=== PATIENT | female | born 1985 | race Caucasian/White ===

== ENCOUNTER 2016-12-15 20:14 | Emergency (ER) | payer BC ==
[2016-12-15 20:40] VITALS: BP 114/75
--- NOTE | 2016-12-15 21:23 | UC ---
Shoulder Pain HPI - HPI Summary HPI Summary: The patient comes in today for: 1. Bilateral shoulder pain: Onset: "a few weeks ago." Palliative/provocative: Movement makes it worse. Quality: Stabbing. Region: Bilateral shoulders Severity: 02/24 Time: Constant. Associated symptoms: Injury/event: None known. She has no idea. Previous treatment: She has been taking Nida "Pain relief." She does not know what the pain medication is nor the dosing instructions. PCP: Dr. Us, but she has not seen her for this. X-rays" None. She complains of right shoulder muscle spasms. - History of Current Complaint Chief Complaint: UCUpperExtremity Stated Complaint: SHOULDER PAIN Time Seen by Provider: 12/15/16 21:17 Hx Obtained From: Patient Hx Last Menstrual Period: 11/25/16 - Allergies/Home Medications Allergies/Adverse Reactions: Allergies Allergy/AdvReac Type Severity Reaction Status Date / Time No Known Allergies Allergy Verified 10/08/14 05:50 Home Medications: Home Medications Naltrexone HCl-Bupropion HCl [Contrave 8-90 mg] 1 tab PO 12/15/16 [History] Topiramate [Topamax 100 mg tab] 12/15/16 [History] PMH/Surg Hx/FS Hx/Imm Hx Previously Healthy: No - Hx substance abuse, ADHD Endocrine History Of: Denies: Diabetes, Thyroid Disease, Hyperthyroidism, Hypothyroidism, Dyslipidemia Cardiovascular History Of: Denies: Cardiac Disorders, Hypertension, Pacemaker/ICD, Myocardial Infarction , Congestive Heart Failure, Atrial Fibrillation, Deep Vein Thrombosis, Bleeding Disorders Respiratory History Of: Reports: Asthma - Albuterol inhaler once week Denies: COPD GI/ History Of: Reports: Gastroesophageal Reflux Denies: Ulcer, Gastrointestinal Bleed, Gall Bladder Disease, Kidney Stones, Diverticulitis, Renal Disease, Urosepsis Neurological History Of: Denies: TIA, CVA, Dementia, Seizures, Migraine Psychological History Of: Reports: Anxiety, Depression Denies: Bipolar Disorder, Schizophrenia, Post Traumatic Stress Disorder Cancer History Of: Denies: Lung Cancer, Colorectal Cancer, Breast Cancer, Prostate Cancer, Cervical Cancer Other History Of: Negative For: HIV, Hepatitis B, Hepatitis C, Anticoagulant Therapy - Surgical History Surgical History: Yes Surgery Procedure, Year, and Place: knee sugery in the past - Family History Known Family History: Positive: Cardiac Disease Negative: Hypertension - Social History Occupation: Unemployed Alcohol Use: None Substance Use Type: None Smoking Status (MU): Never Smoked Tobacco - Immunization History Most Recent Influenza Vaccination: never Most Recent Tetanus Shot: unknown Most Recent Pneumonia Vaccination: never Review of Systems Constitutional: Negative Skin: Negative Eyes: Negative ENT: Negative Respiratory: Negative Cardiovascular: Negative Gastrointestinal: Negative Genitourinary: Negative Musculoskeletal: Arthralgia All Other Systems Reviewed And Are Negative: Yes Physical Exam Triage Information Reviewed: Yes Appearance: Well-Appearing, No Pain Distress - When taking a history, she moves her arms all about to express herself. She does not life them about her had, but will abduct them away from her body to about 45 degrees. Vital Signs: Initial Vital Signs Temp 98.6 F 12/15/16 20:36 Pulse 85 12/15/16 20:36 Resp 20 12/15/16 20:36 BP 114/75 12/15/16 20:36 Pulse Ox 99 12/15/16 20:36 Eyes: Positive: Conjunctiva Clear ENT: Positive: Hearing grossly normal. Negative: Pharyngeal erythema, Nasal congestion, Nasal drainage, TM bulging, TM dull, TM red, Tonsillar swelling, Tonsillar exudate Dental: Negative: Gross Decay/Caries @, Dental Fracture @ Neck: Positive: Supple, Nontender, No Lymphadenopathy. Negative: Nuchal Rigidity Respiratory: Positive: Chest non-tender, Lungs clear, No respiratory distress, No accessory muscle use. Negative: Crackles, Wheezing Cardiovascular: Positive: RRR, No Murmur Abdomen Description: Positive: Nontender, No Organomegaly, Soft. Negative: Distended, Guarding Musculoskeletal: Positive: Strength Intact, ROM Limited @ - She is able to anteriorly abduct her arms to a few degrees above horizontal. Lateral abdution is to about horizontal. There is no tenderness to palpation of the coracoid process, AC joint, deltoid bursa or the biceps tendon. She has good strengh to resisting internal and external rotation. Neurological: Positive: Alert, Muscle Tone Normal Psychological: Positive: Age Appropriate Behavior, Consolable Skin: Negative: rashes, breakdown Shoulder Course/Dx - Differential Dx/Diagnosis Differential Diagnosis/HQI/PQRI: Bursitis, Sprain Provider Diagnoses: shoulder tendonitis, bilateral. Discharge - Discharge Plan Condition: Stable Disposition: HOME Patient Education Materials: Shoulder Sprain (ED), Tendinitis (ED) Referrals: Landy Golden MD [Primary Care Provider] - 1 Week (Please see your primary care provider in a week to see how well you are doing. If you get worse, please be seen sooner in the ER or through us.)
[2016-12-15] MEDS ORDERED: Naproxen TAB* 250 MG PO ONE (21:39)
== END 2016-12-15 21:58 | disposition home or self-care (01) ==
LOC: UCEAST 20:14
DX: M75.92 Shoulder lesion, unspecified, left shoulder (principal); M75.91 Shoulder lesion, unspecified, right shoulder; F90.9 Attention-deficit hyperactivity disorder, unspecified type; J45.909 Unspecified asthma, uncomplicated; K21.9 Gastro-esophageal reflux disease without esophagitis; F41.8 Other specified anxiety disorders
CPT/HCPCS: 99212; A9270-GY; G0463

== ENCOUNTER 2017-07-28 14:12 | Emergency (ER) | payer BC, OTHER ==
[2017-07-28 16:11] VITALS: BP 111/69
[2017-07-28] MEDS ORDERED: Acetaminophen TAB* 325 MG PO ONE (16:15)
--- NOTE | 2017-07-28 16:17 | UC ---
Nagi Rey Gabriel, scribed for Balta Grant MD on 07/28/17 at 1521 . FLU HPI - HPI Summary HPI Summary: This patient is a 32 year old F presenting to [facility] with a chief complaint of joint and bone pain since last night. The patient rates the pain 8/10 in severity. Patient reports chills, sinus pain, sore throat, coughing, muscle aches, rhinorrhea, diarrhea, and nausea. She states she has felt like she has had a cold for about 2 weeks. 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 - History of Current Complaint Chief Complaint: UCGeneralIllness Stated Complaint: BODYACHES Time Seen by Provider: 07/28/17 15:11 Hx Obtained From: Patient Hx Last Menstrual Period: 07/27/17 Onset/Duration: Lasting Weeks - 2, worse since last night, Still Present Severity Currently: Mild Severity Initially: Moderate Pain Intensity: 8 Associated Signs & Symptoms: Positive: Myalgia, Cough, Sore Throat, Nasal Congestion, Diarrhea. Negative: Headache, Vomiting Related Hx: Possible Flu/Infectious Exposure - children - Allergy/Home Medications Allergies/Adverse Reactions: Allergies Allergy/AdvReac Type Severity Reaction Status Date / Time No Known Allergies Allergy Verified 10/08/14 05:50 Home Medications: Home Medications Cetirizine* [ZyrTEC 10 MG TAB*] 10 mg PO DAILY 07/28/17 [History Confirmed 07/28] Venlafaxine HCl [Effexor XR-] 37.5 mg PO DAILY 07/28/17 [History Confirmed 07/28] PMH/Surg Hx/FS Hx/Imm Hx Previously Healthy: Yes Other History Of: Negative For: HIV, Hepatitis B, Hepatitis C, Anticoagulant Therapy - Surgical History Surgical History: Yes Surgery Procedure, Year, and Place: knee sugery in the past - Family History Known Family History: Positive: Cardiac Disease Negative: Hypertension - Social History Occupation: Employed Full-time Alcohol Use: None Substance Use Type: None Smoking Status (MU): Never Smoked Tobacco Type: eCigarettes - Immunization History Most Recent Influenza Vaccination: never Most Recent Tetanus Shot: unknown Most Recent Pneumonia Vaccination: never Review of Systems Constitutional: Chills ENT: Sore Throat, Nasal Discharge, Sinus Pain/Tenderness Respiratory: Cough Gastrointestinal: Diarrhea, Nausea Musculoskeletal: Myalgia, Other: - joint and bone pain All Other Systems Reviewed And Are Negative: Yes Physical Exam Triage Information Reviewed: Yes Appearance: Well-Appearing, No Pain Distress, Other: - the patient is figits a lot and is anxious while talking. She does settle down when gets used to talking with me. Vital Signs: Initial Vital Signs Temp 98.0 F 07/28/17 14:40 Pulse 119 07/28/17 14:40 Resp 18 07/28/17 14:40 BP 104/63 07/28/17 14:40 Pulse Ox 100 07/28/17 14:40 Vital Signs Reviewed: Yes Eyes: Positive: Conjunctiva Clear ENT: Positive: Normal ENT inspection, Pharynx normal, Nasal congestion, TMs normal Neck: Positive: Supple, Nontender Respiratory: Positive: Chest non-tender, Lungs clear Cardiovascular: Positive: RRR, No Murmur Abdomen Description: Positive: Nontender Musculoskeletal: Positive: ROM Intact, No Edema, Other: - no swelling joints Neurological: Positive: Alert, Muscle Tone Normal Psychological Exam: Normal Skin Exam: Normal Flu Course/Dx - Course Course Of Treatment: 32 yr old female with uri symptoms and diffuse myalgias, joint aches, nasal congestion, cough, diarrhea. DC home FU with PMD. Viral syndrome - Differential Dx/Diagnosis Provider Diagnoses: viral syndrome Discharge - Discharge Plan Condition: Good Disposition: HOME Patient Education Materials: Viral Syndrome (ED) Forms: *Work Release Referrals: Landy Golden MD [Primary Care Provider] - The documentation as recorded by the Nagi kerns Gabriel accurately reflects the service I personally performed and the decisions made by me, Balta Grant MD.
== END 2017-07-28 16:26 | disposition home or self-care (01) ==
LOC: UCEAST 14:12
DX: B34.9 Viral infection, unspecified (principal); Z32.02 Encounter for pregnancy test, result negative
CPT/HCPCS: 81003; 84702; 87502; 99211; A9270-GY; G0463

== ENCOUNTER 2017-08-04 09:03 | Emergency (ER) | payer OTHER ==
[2017-08-04 10:15] VITALS: BP 113/80
--- NOTE | 2017-08-04 10:17 | UC ---
Lower Extremity/Ankle HPI - HPI Summary HPI Summary: Pt presents with left ankle pain and swelling s/p fall today at approx 0745. She tells me that she was rushing to get to work and slipped going down her stairs - sustained an inversion ankle injury and landed on it. Currently she has pain and swelling greater on the lateral aspect of her ankle than on the medial. She denies numbness, tingling, or previous injury. - History of Current Complaint Chief Complaint: UCLowerExtremity Stated Complaint: ANKLE INJURY Time Seen by Provider: 08/04/17 10:16 Hx Obtained From: Patient Hx Last Menstrual Period: 07/28/17 Onset/Duration: Sudden Onset Severity Initially: Moderate Severity Currently: Moderate Pain Intensity: 7 Pain Scale Used: 0-10 Numeric Aggravating Factor(s): Standing, Ambulation Alleviating Factor(s): Rest, Elevation Able to Bear Weight: No - Allergies/Home Medications Allergies/Adverse Reactions: Allergies Allergy/AdvReac Type Severity Reaction Status Date / Time No Known Allergies Allergy Verified 08/04/17 10:15 Home Medications: Home Medications Naltrexone TAB* 50 mg PO BEDTIME 08/04/17 [History Confirmed 08/04/17] [id number] [Sinus Congestion & Pain S 5-325-200 mg] 2 tab PO PRN 08/04/17 [History] PMH/Surg Hx/FS Hx/Imm Hx Previously Healthy: Yes GI/ History: Gastroesophageal Reflux Other History Of: Negative For: HIV, Hepatitis B, Hepatitis C, Anticoagulant Therapy - Surgical History Surgical History: Yes Surgery Procedure, Year, and Place: L knee sugery in the past, choly, Adenoids - Family History Known Family History: Positive: Cardiac Disease Negative: Hypertension - Social History Occupation: Employed Full-time Lives: Alone Alcohol Use: None Substance Use Type: None Smoking Status (MU): Never Smoked Tobacco Type: eCigarettes Amount Used/How Often: pt vapes daily - Immunization History Most Recent Influenza Vaccination: never Most Recent Tetanus Shot: unknown Most Recent Pneumonia Vaccination: never Review of Systems Constitutional: Negative Skin: Negative Respiratory: Negative Cardiovascular: Negative Neurovascular: Negative Musculoskeletal: Decreased ROM - Left ankle, Edema - Left ankle, Other: - Left ankle pain All Other Systems Reviewed And Are Negative: Yes Physical Exam Triage Information Reviewed: Yes Appearance: Well-Appearing, Well-Nourished Vital Signs: Initial Vital Signs Temp 97.5 F 08/04/17 10:10 Pulse 93 08/04/17 10:10 Resp 16 08/04/17 10:10 BP 113/80 08/04/17 10:10 Pulse Ox 99 08/04/17 10:10 Vital Signs Reviewed: Yes Neck: Positive: Supple, Nontender, No Lymphadenopathy Respiratory: Positive: Chest non-tender, Lungs clear, Normal breath sounds Cardiovascular: Positive: RRR, No Murmur, Pulses Normal - Left foot Musculoskeletal: Positive: Strength Limited @ - Left ankle/foot, ROM Limited @ - Left ankle/foot, Edema @ - Left lateral malleolus - moderate., Other: - TTP left lateral malleolus. No obvious bony deformities, but difficult to assess given amount of edema. Pain and increased laxity with inversion. Pain with eversion. She is able to dorsiflex and plantar flex, but with pain. Neurological: Positive: Alert, Other: - Left foot/ankle/toes sensations intact Psychological: Positive: Age Appropriate Behavior Skin: Negative: rashes Lower Extremity Course/Dx - Course Course Of Treatment: Ankle XR: IMPRESSION: OBLIQUE, MINIMALLY DISPLACED FRACTURE OF THE DISTAL FIBULA. I called orthopedics and they will see her today at 1100 (approx a half hour from the time of call). Orthopedics is located across the parking lot from our current location. I will place her in a gel splint and her father will drive her across the parking lot. - Differential Dx/Diagnosis Differential Diagnosis/HQI/PQRI: Contusion, Dislocation, Fracture (Closed), Fracture (Open), Sprain, Strain Provider Diagnoses: Displaced distal fibula fracture left Discharge - Discharge Plan Condition: Stable Disposition: HOME Patient Education Materials: Ankle Fracture (ED) Referrals: Landy Golden MD [Primary Care Provider] - Reji Montenegro MD [Medical Doctor] - As Soon As Possible Additional Instructions: If you develop a fever, SOB, chest pain, new or worsening symptoms - please call your PCP or go to the ED. Follow up with orthopedics today at 1100.
--- NOTE | 2017-08-04 10:41 | RAD ---
HISTORY: Pain, fall, inversion injury, left ankle COMPARISONS: None VIEWS: 3, Frontal, lateral, and oblique views of the left ankle FINDINGS: BONE DENSITY: Normal. BONES: There is an oblique, minimally displaced fracture of the distal fibula. The tibiofibular interval is normal. JOINTS: There is no arthropathy. ALIGNMENT: There is no dislocation. SOFT TISSUES: There is soft tissue swelling over the lateral malleolus. OTHER FINDINGS: None. IMPRESSION: OBLIQUE, MINIMALLY DISPLACED FRACTURE OF THE DISTAL FIBULA.
== END 2017-08-04 10:53 | disposition home or self-care (01) ==
LOC: UCEAST 09:03
DX: S82.832A Other fracture of upper and lower end of left fibula, initial encounter for closed fracture (principal); W10.8XXA Fall (on) (from) other stairs and steps, initial encounter; Y93.01 Activity, walking, marching and hiking; Y92.009 Unspecified place in unspecified non-institutional (private) residence as the place of occurrence of the external cause; Y99.9 Unspecified external cause status; F17.203 Nicotine dependence unspecified, with withdrawal
CPT/HCPCS: 99211; G0463

== ENCOUNTER 2017-08-07 10:05 | Day surgery (SDC) | payer OTHER ==
[~2017-08-07 10:05] MED LIST: Acetaminophen TAB* 325 MG PO ONE; Buffered Lidocaine 0.9% SYRIN* 5 ML/SYR SYRINGE INTRADERM ONE; Famotidine IV* 10 MG/ML 2 ML (20 mg) IV ONE; Sodium Citrate/Citric Acid* 15 ML UDC PO ONE
[2017-08-07] MEDS ORDERED: Famotidine IV* 10 MG/ML 2 ML (20 mg) ONE (10:46)
[2017-08-07] MEDS ORDERED: Acetaminophen TAB* 325 MG ONE (10:47)
[2017-08-07] MEDS ORDERED: Sodium Citrate/Citric Acid* 15 ML UDC ONE (10:47)
[2017-08-07] MEDS ORDERED: fentaNYL* 50 MCG/ML 2 ML VIAL (100 MCG VIAL) ONE ×2 (10:53→13:17)
[2017-08-07] MEDS ORDERED: Midazolam* 1 MG/ML 2 ML VIAL (2 MG) ONE ×2 (10:53→12:34)
[2017-08-07] MEDS ORDERED: Lidocaine 2% PF * 5 ML VIAL ONE (10:53)
[2017-08-07] MEDS ORDERED: Propofol* 500 MG/50 ML BTL ONE (10:53)
[2017-08-07] MEDS ORDERED: Chloroprocaine 2%* 20 ML VIAL ONE (10:54)
[2017-08-07] MEDS ORDERED: Bupivacaine 0.5% SDV PF* 30 ML VIAL ONE (11:48)
[2017-08-07] MEDS ORDERED: ceFAZolin 2 GM PREMIX (*) 2 GM/50 ML BAG IVPB ONE (11:49)
[2017-08-07] MEDS ORDERED: oxyCODONE TAB* 5 MG TAB PO PRN (13:03)
[2017-08-07] MEDS ORDERED: HYDROcodone/ACETAMIN 5-325 MG* 1 TAB PO PRN (13:03)
[2017-08-07] MEDS ORDERED: diPHENhydraMINE IV* 50 MG/ML 1 ml VIAL (BENADRYL) IV PRN (13:03)
[2017-08-07] MEDS ORDERED: Ondansetron INJ* 2 MG/ML VIAL IV PRN (13:03)
[2017-08-07] MEDS ORDERED: HYDROmorphone INJ* 1 MG/ML CARPUJECT SYRINGE IV PRN (13:03)
[2017-08-07] MEDS ORDERED: PROCHLORPERAZINE INJ 5 MG/ML 2 ML VIAL IV PRN (13:03)
[2017-08-07] MEDS ORDERED: oxyCODONE/Acetamin 5/325 MG* TAB PO PRN (13:03)
[2017-08-07] MEDS ORDERED: DiMENhydriNATE IV* 50 MG/ML VIAL IV PUSH PRN (13:03)
[2017-08-07] MEDS ORDERED: Ibuprofen TAB* 600 MG PO PRN (13:03)
[2017-08-07] MEDS ORDERED: fentaNYL* 50 MCG/ML 2 ML VIAL (100 MCG VIAL) IV PRN (13:03)
[2017-08-07] MEDS ORDERED: Levalbuterol 0.63MG/3ML NEB* UNIT OF USE INH PRN (13:03)
[2017-08-07] MEDS ORDERED: Propofol* 10 MG/ML 20 ML BTL IV PUSH ONE (13:19)
[2017-08-07] MEDS ORDERED: Ondansetron INJ* 2 MG/ML VIAL ONE (13:20)
[2017-08-07] MEDS ORDERED: Ketorolac INJ* 30 MG/ML 1 ML VIAL ONE (13:20)
[2017-08-07 15:07] VITALS: BP 117/88
--- NOTE | 2017-08-08 02:23 | OP ---
OPERATIVE REPORT: DATE OF OPERATION: 08/07/17 DATE OF : 85 SURGEON: Reji Montenegro MD EDUCATIONAL PROGRAM ASSISTANT: SHAKIRA Agarwal ANESTHESIOLOGIST: Arabella Liao MD ANESTHESIA: Regional nerve block and spinal with MAC. PRE-OP DIAGNOSIS: Left ankle fracture with possible instability. POST-OP DIAGNOSIS: Left bimalleolar equivalent ankle fracture with syndesmotic instability. OPERATIVE PROCEDURE: 1. Open reduction, internal fixation of lateral malleolar ankle fracture. 2. Open reduction and internal fixation of distal tibiofibular syndesmotic disruption. 3. Stress views performed by surgeon utilizing fluoroscopy under anesthesia. INDICATIONS FOR PROCEDURE: Kimberly sustained the above-mentioned injury. There was concern for medial clear space as well as syndesmotic widening on x- rays. So, we did discuss options including advanced imaging versus exam under anesthesia with a possibility of performing open reduction and internal fixation if it did turning lathe tender to be unstable. We did discuss the nature and risks of surgery in careful detail in the office as well as in the preoperative holding area. Our discussions regarding the risks of surgery included, but were not limited to, infection, wound problems, nerve injury, neuroma, RSD, persistent symptoms, and even the remote chance of a catastrophic complication including the loss of limb. IMPLANTS: Synthes small fragment 3.5 mm cortical screws and a one-third semitubular plate. TOURNIQUET TIME: Less than 1 hour at 250 mmHg with a well-padded thigh tourniquet. SPECIMENS: None. ESTIMATED BLOOD LOSS: Minimal. COMPLICATIONS: None. STATUS: Stable from the operating room to the recovery room and home. DESCRIPTION OF PROCEDURE: The patient was seen in the preoperative holding unit and informed and written consent was obtained. The appropriate extremity was marked. The patient was then brought to the operating room and carefully positioned on the operating room table. Anesthesia was induced. All bony prominences were padded with great care. A well-padded thigh tourniquet was placed. A surgical safety pause was then conducted in which we confirmed the appropriate patient, extremity, planned procedure, availability of equipment, indication, and administration of prophylactic antibiotics and DVT prophylaxis in the form of a compression boot on the nonsurgical extremity. I started by performing a stress examination of the ankle using fluoroscopy. This did reveal both widening of the medial clear space as well as some subtle syndesmotic instability. Therefore, the decision was made to move forward with the open reduction and internal fixation of the lateral malleolus and the syndesmosis. So, at this time, the standard prep and drape was performed with a ChloraPrep. I then performed an Esmarch exsanguination of the limb and inflated the tourniquet. I utilized a laterally based incision overlying the distal fibula. Great care was taken to protect the superficial peroneal nerve, which was not visualized within the field of view. We dissected down to the soft tissue layers to expose the distal fibula. We then exposed the fracture. Fracture hematoma was removed. The fracture was well defined and then I used a point-of- reduction clamp to gain reduction on the fracture. I then placed a 3.5 mm cortical screw in a lag fashion which provided great compression of the fracture site. I then placed a 7-hole one- third semitubular plate contoured to the distal fibula on to the distal fibula. Two screws distal and two screws proximal were placed, which held the fibula well reduced in a neutralization manner. The provisional fixation with the point-of- reduction clamp was then removed and fibula was well reduced. Fluoroscopy was then utilized to ensure that the plate was in good position and the mortise was restored and the fibula was at the length. At this time, I directly visualized the syndesmosis and it was obviously disrupted and unstable. So, under fluoroscopic guidance, 2 quadricortical syndesmotic screws were placed at a 30-degree antegrade trajectory from the fibula into the tibia. These had excellent purchase. Afterwards, she had good motion in the ankle and the syndesmosis was held tightly reduced. Final fluoroscopic images were then obtained, which did show an excellent reduction of the lateral malleolus and syndesmosis with the mortise reconstituted. Final fluoroscopic images were taken and then the wound was copiously irrigated with sterile saline. The wound was closed in a layered fashion meticulously utilizing 3-0 Monocryl for the deep layer, 3-0 Monocryl for the subdermal layer and 3-0 nylon for the skin. A sterile dressing was then applied followed by a splint with the ankle in neutral position. The patient was awakened from anesthesia and transferred to the recovery room in stable condition. There were no complications. All needle and sponge counts were correct at the end of the case. ATTESTATION: I attest that I was present, scrubbed and performed the entire procedure myself. POSTOPERATIVE PLAN: Kimberly will be kept nonweightbearing for 2 months. Between months 2 and 3, she will be weightbearing in a boot, between months 3 and 4, weightbearing in a regular shoe. At 4 months, we will plan on doing a hardware removal. I will see her back in 2 weeks' time for likely removal of her sutures and application of Steri-Strips. [id number]/[facility] #: [id number] [facility]
--- NOTE | 2017-08-08 09:33 | RAD ---
INDICATION: Left ankle fracture, injury COMPARISONS: August 04, 2017 TECHNIQUE: Fluoroscopy was provided for a surgical procedure. Total fluoroscopy time is: 88.1 seconds FINDINGS: Spot images demonstrate internal fixation of the distal fibula and across the tibiofibular interval IMPRESSION: FLUOROSCOPY WAS PROVIDED FOR A SURGICAL PROCEDURE CPT II Codes: 6045F
== END 2017-08-07 15:17 | disposition home or self-care (01) ==
LOC: OR 10:05
PROVIDERS: ATTEND Orthopaedic Surgery
DX: S82.842A Displaced bimalleolar fracture of left lower leg, initial encounter for closed fracture (principal); W00.1XXA Fall from stairs and steps due to ice and snow, initial encounter; Y92.008 Other place in unspecified non-institutional (private) residence as the place of occurrence of the external cause; Z68.29 Body mass index [BMI] 29.0-29.9, adult; G47.33 Obstructive sleep apnea (adult) (pediatric); F17.200 Nicotine dependence, unspecified, uncomplicated; K21.9 Gastro-esophageal reflux disease without esophagitis; G43.909 Migraine, unspecified, not intractable, without status migrainosus
CPT/HCPCS: 76000; 81025; A9270-GY; C1713; C1776; J0690; J1885; J2250; J2400; J2405; J2704; J3010